=== PATIENT | female | born 1955 | race Caucasian/White ===

== ENCOUNTER 2016-09-23 10:59 | Day surgery (SDC) | payer OTHER ==
[~2016-09-23] VITALS: Ht 170.2 cm; Wt 95.3 kg
[~2016-09-23 10:59] MED LIST: ASPI-664 PO; ATOR10TA65 PO
[2016-09-23 11:34] VITALS: Ht 170.2 cm; Wt 95.3 kg
[2016-09-23 11:44] VITALS: BP 124/69; PULSE 70; RESP 15
[2016-09-23 12:20] VITALS: BP 115/72; PULSE 68; RESP 12
[2016-09-23] MEDS ORDERED: PROPOFOL 60 ML ONE (18:03)
[2016-09-23] MEDS ORDERED: LIDOCAINE 2% (SDV) 5 ML INJ ONE (18:03)
--- NOTE | 2016-09-24 07:49 | GILP ---
DATE OF PROCEDURE: 09/23/2016 PREOPERATIVE DIAGNOSES: 1. Chronic heartburn. 2. Dysphagia. POSTOPERATIVE DIAGNOSES: 1. Gastroesophageal reflux disease. 2. Gastritis with erosions. 3. Gastric mucosal biopsies were taken for Helicobacter pylori test. 4. No stricture or neoplasm was identified. PROCEDURE PERFORMED: Esophagogastroduodenoscopy and biopsy. SURGEON: Margaret Salvador MD. INDICATION FOR PROCEDURE: Ms. Josué Adair is a 61-year-old female patient who had chronic heartburn not responding to therapy. She was also complaining of dysphagia. The patient was scheduled for endoscopic examination for further evaluation. The procedure and possible complications were well explained to the patient. She understood and consented to the procedure. DESCRIPTION OF PROCEDURE: Under the influence of anesthesia the gastroscope was carefully introduced into the esophagus and under direct vision it was advanced to the stomach, into the pylorus, into the duodenal bulb and the descending duodenum. Findings esophagus, the patient had gastroesophageal reflux disease. There was no stricture or neoplasm. Stomach, she had gastritis with erosions. Gastric mucosal biopsies were taken for Helicobacter pylori test. Duodenum was normal. She tolerated the procedure very well and there was no complications from the procedure. At the end of the procedure she was awake with stable vital signs and she was discharged home in the care of her family. IMPRESSION: 1. Gastroesophageal reflux disease. 2. Gastritis with erosions. 3. Gastric mucosal biopsies were taken for Helicobacter pylori test. 4. No stricture or neoplasm was identified. PLAN: 1. Pantoprazole 40 mg p.o. q.a.m. 2. Await Helicobacter pylori test report. Dictated By: MD TAISHA Donato/silvano/cipriano /Document#: [id number] CC: Margaret Salvador MD;*[facility]*
== END 2016-09-23 12:51 | disposition home or self-care (01) ==
LOC: GIL 10:59
PROVIDERS: ATTEND Internal Medicine Gastroenterology
DX: K21.9 Gastro-esophageal reflux disease without esophagitis (principal); B96.81 Helicobacter pylori [H. pylori] as the cause of diseases classified elsewhere; J45.909 Unspecified asthma, uncomplicated; Z85.3 Personal history of malignant neoplasm of breast; K29.60 Other gastritis without bleeding
CPT/HCPCS: 43239; 87081; Z7610

== ENCOUNTER 2017-01-20 08:40 | Day surgery (SDC) | payer OTHER ==
[~2017-01-20] VITALS: Ht 170.2 cm; Wt 90.3 kg
[2017-01-20] MEDS ORDERED: BENTYL (09:20)
[2017-01-20] MEDS ORDERED: PANTOPRAZOLE (09:20)
[2017-01-20 09:22] VITALS: Ht 170.2 cm; Wt 90.3 kg
[2017-01-20 09:42] VITALS: BP 121/69; PULSE 58; RESP 20
[2017-01-20] MEDS ORDERED: LIDOCAINE 2% (SDV) 5 ML INJ ONE (09:45)
[2017-01-20] MEDS ORDERED: PROPOFOL 20 ML ONE ×3 (09:45→10:26)
--- NOTE | 2017-01-20 10:33 | OPPN ---
Date/Time of Note Date/Time of Note DATE: 01/20/17 TIME: 10:31 Operative Report Preoperative Diagnosis Abdominal pain Chronic diarrhea Postoperative Diagnosis Gastroesophageal reflux disease Gastritis with erosions Status post subtotal colectomy Internal hemorrhoids Operation/Procedure Performed Esophagogastroduodenoscopy and biopsy Flexible sigmoidoscopy and biopsy Surgeon see signature line assistant news director None Anesthesia: MAC Estimated blood loss: none Transfusion Required none Specimen Gastric mucosal biopsy Random colon biopsies Grafts/Implants none Complications none SHAMA DAILY MD Jan 20, 2017 10:33
--- NOTE | 2017-01-20 10:59 | GILP ---
DATE OF PROCEDURE: NAME OF PROCEDURES: 1. Esophagogastroduodenoscopy and biopsy. 2. Flexible sigmoidoscopy and biopsy. SURGEON: Shama Salvador MD PREOPERATIVE DIAGNOSES: 1. Abdominal pain. 2. Chronic diarrhea. POSTOPERATIVE DIAGNOSES: 1. Gastroesophageal reflux disease. 2. Gastritis with erosions. 3. Gastric mucosal biopsies were taken for H. pylori test. 4. Flexible sigmoidoscopy to anastomotic area. 5. Random biopsies were taken to rule out microscopic colitis. 6. Internal hemorrhoids. INDICATION FOR THE PROCEDURE: Ms. Josué Adair is a 61-year-old female patient who had upper a bdominal pain and lower abdominal pain, not responding to therapy. Patient also had chronic heartbu rn, not responding to therapy. She had chronic diarrhea. The patient underwent abdominal CT scan a nd she was noted to have thickening of the sigmoid colon, so the patient was scheduled for endoscopy and colonoscopy for further evaluation. The procedures and possible complications were well explained to the patient, she understood and con sented to the procedure. DESCRIPTION OF PROCEDURE: Under the influence of anesthesia, the gastroscope was carefully introduc ed into the esophagus and under direct vision it was advanced to the stomach and through the pylorus into the duodenal bulb and descending duodenum. FINDINGS: ESOPHAGUS: The patient had gastroesophageal reflux disease. STOMACH: She had gastritis with erosions. Gastric mucosal biopsies were taken for H. pylori test. DUODENUM: Normal. Flexible sigmoidoscope was carefully introduced into the rectum, and it was advanced to the anastomo tic area. FINDINGS: The patient was noted to have internal hemorrhoids. Random biopsies were taken to rule o ut microscopic colitis. She tolerated the procedures very well and there were no complication from the procedures. At the e nd of the procedures, she was awake with stable vital signs and she was discharged home to the care of her family. IMPRESSION: Please see postoperative diagnoses. PLAN: 1. Continue pantoprazole 40 mg p.o. q.a.m. 2. Bentyl 10 mg p.o. t.i.d. a.c. 3. Await histopathology reports. Small bowel series with barium for further evaluation. Dictated By: SHAMA SUMNER/HUA Conf#: [id number] DID#: [id number]
--- NOTE | 2017-01-21 10:05 | PREOPHP ---
DATE OF ADMISSION: 01/20/2017 TYPE OF CONSULTATION: Preoperative Gastroenterology Dear Dr. Dawkins, I thank you very much for this kind referral. HISTORY OF PRESENT ILLNESS: Ms. Josué Adair is a 61-year-old female patient who has been refe rred to me for further evaluation of severe abdominal pain and change in the bowel habit. The patie nt states she has got severe upper abdominal pain and pain in the lower part of the abdomen. Patien t went to the emergency room, and she had abdominal CT scan done and she was noted to have thickenin g of the christie of the distal sigmoid colon. There was no other abnormality identified. The patient is known to have had gastritis and gastroesophageal reflux disease. She is being treated for H. py vince infection with antibiotics. She gives history of gallstones, but she does not have any fever, chills, or jaundice. No right upper quadrant pain, no liver disease. Patient complains of chronic diarrhea. She is status post subtotal resection of the colon for cancer. No rectal bleeding. She has history of labile hypertension. Not a diabetic. No history of heart disease or lung problem or kidney disease. She is status post lumpectomy and radiation for the breast cancer. She also had a ppendectomy and tubal ligation. SOCIAL HISTORY: Nonsmoker, no alcohol abuse. FAMILY HISTORY: No family history of gastrointestinal tract neoplasm. ALLERGIES: SHE IS ALLERGIC TO MORPHINE. MEDICATIONS: 1. Omeprazole. 2. Antibiotic therapy for H. pylori. PHYSICAL EXAMINATION: GENERAL: She is 5 feet 7 inches tall and weighs 209 pounds. HEART: Normal heart sounds. LUNGS: Clear. ABDOMEN: Soft, nondistended. No masses, no focal tenderness. Normal bowel sounds. NEUROLOGIC: Normal exam. IMPRESSION: 1. Severe upper and lower abdominal pain, not responding to therapy with omeprazole. The patient h ad abdominal CT scan done in the emergency room, and she was noted to have thickening of the sigmoid colon, history of gallstones. 2. History of Helicobacter pylori infection gastritis for which she is being treated with antibioti cs. 3. Chronic diarrhea. 4. Status post subtotal resection of the colon for cancer. 5. Labile hypertension. 6. Status post lumpectomy and radiation for breast cancer. 7. Status post appendectomy and tubal ligation. 8. ALLERGY TO MORPHINE. PLAN: 1. Continue pantoprazole. 2. Continue antibiotic therapy for Helicobacter pylori infection. 3. Bentyl 10 mg p.o. t.i.d. 4. Upper endoscopy and colonoscopy for further evaluation. 5. Because of the obesity with a short thick neck, she needs monitored anesthesia care. The procedures and possible complications are well explained to the patient. She understands and co nsents to the procedures. I thank you once again. With warmest personal regards, Dictated By: SHAMA SUMNER/HUA Conf#: [id number] DID#: [id number]
== END 2017-01-20 13:10 | disposition home or self-care (01) ==
LOC: GIL 08:40
PROVIDERS: ATTEND Internal Medicine Gastroenterology
DX: R19.4 Change in bowel habit (principal); K21.9 Gastro-esophageal reflux disease without esophagitis; K29.60 Other gastritis without bleeding; K64.8 Other hemorrhoids; I10 Essential (primary) hypertension
CPT/HCPCS: 43239; 45331; 87081; 88305; Z7610

== ENCOUNTER 2018-05-17 07:13 | Emergency (ER) | payer OTHER ==
[~2018-05-17] VITALS: Ht 170.2 cm; Wt 99.6 kg
[~2018-05-17 07:13] MED LIST changes: -ASPI-664 PO; -ATOR10TA65 PO; +BENTYL; +PANTOPRAZOLE
[2018-05-17 07:16] VITALS: Ht 170.2 cm; Wt 99.6 kg
[2018-05-17] MEDS ORDERED: KETOROLAC 15 MG INJ IV STA (07:38)
[2018-05-17] MEDS ORDERED: SOD CHLORIDE 0.9% 500 ML IV STA (07:38)
[2018-05-17] MEDS ORDERED: ONDANSETRON 4 MG INJ IV STA (07:38)
--- NOTE | 2018-05-17 07:38 | ERD ---
ER Documentation Chief Complaint Chief Complaint feels nauseous; pressure like chest pain; dizziness HPI 62-year-old woman complaining of headache, dizziness, nausea and vomiting, hypertension beginning this morning. She has had similar episodes in the past and also states she feels anxious this morning with chest pain and palpitations. She had a few episodes of clear nonbloody nonbilious emesis and called 911 and was transported here without further complications. Her chest pain is sharp, nonexertional nonradiating. Her headache is global and diffuse and feels similar to prior episodes associated with anxiety and dizziness which she normally has when her blood pressure goes up. She states she has been using her medications as prescribed. Patient denies slurred speech, no difficulty speaking or swallowing, no weakness in her arms or legs. Patient was transported here by EMS without further complications. ROS All systems reviewed and are negative except as per history of present illness. Medications Home Meds Active Scripts Meclizine Hcl* (Antivert*) 12.5 Mg Tab, 25 MG PO Q6H PRN for DIZZINESS, #20 TAB Prov:SAIRA SEWELL MD 05/17/18 Naproxen* (Naprosyn*) 500 Mg Tablet, 500 MG PO BID PRN for PAIN AND/OR INFLAMMATION, #30 TAB Prov:SAIRA SEWELL MD 05/17/18 Reported Medications Ropinirole Hcl* (Ropinirole Hcl*) 0.5 Mg Tablet, 0.5 MG PO HS, TAB 05/17/18 Propranolol Hcl* (Propranolol Hcl*) 10 Mg Tablet, 10 MG PO BID, TAB 05/17/18 Oxybutynin Chloride* (Ditropan*) 5 Mg Tab, 5 MG PO BID, TAB 05/17/18 Buspirone Hcl* (Buspirone Hcl*) 10 Mg Tab, 10 MG PO BID, TAB 05/17/18 Amitriptyline Hcl* (Amitriptyline Hcl*) 100 Mg Tablet, 100 MG PO QHS, #30 TAB 05/17/18 Zolpidem Tartrate* (Zolpidem Tartrate*) 5 Mg Tablet, 5 MG PO QHS PRN for INSOMNIA, #30 TAB 05/17/18 Carisoprodol* (Carisoprodol*) 350 Mg Tablet, 350 MG PO DAILY PRN for MUSCLE SPASMS, TAB 05/17/18 Lorazepam* (Lorazepam*) 1 Mg Tablet, 1 MG PO BID PRN for ANXIETY, #30 TAB 05/17/18 Metoprolol Succinate* (Toprol XL*) 25 Mg Tab.sr.24h, 25 MG PO DAILY, #30 TAB 05/17/18 Cilostazol* (Cilostazol*) 50 Mg Tablet, 50 MG PO BID, TAB 05/17/18 Letrozole* (Letrozole*) 2.5 Mg Tablet, 2.5 MG PO DAILY, TAB 05/17/18 Furosemide* (Furosemide*) 40 Mg Tablet, 40 MG PO DAILY, TAB 05/17/18 Discontinued Reported Medications [Pantoprazole] No Conflict Check 01/20/17 [Bentyl] No Conflict Check 01/20/17 Allergies Allergies: Coded Allergies: epinephrine (Verified Allergy, Severe, 05/17/18) morphine (Verified Allergy, Unknown, RASH, 05/17/18) PMhx/Soc History of gastritis, chronic headaches, chronic diarrhea, resection of colon for colon carcinoma, hypertension, history of tubal ligation and appendectomy, anxiety History of Surgery: Yes (RIGHT LUMPECTOMY, TUBAL LIGATION, SUBTOTAL COLON RESECTION) Anesthesia Reaction: No Hx Neurological Disorder: No Hx Respiratory Disorders: No Hx Cardiac Disorders: Yes (HTN) Hx Psychiatric Problems: No Hx Miscellaneous Medical Probl: No Hx Alcohol Use: No Hx Substance Use: No Hx Tobacco Use: No FmHx Family History: No diabetes Physical Exam Vitals Vital Signs Date Temp Pulse Resp B/P (MAP) Pulse Ox O2 O2 Flow FiO2 Time Delivery Rate 05/17/18 60 19 139/87 99 Room Air 09:42 (104) 05/17/18 63 19 154/87 99 Room Air 08:47 (109) 05/17/18 150/96 08:20 (114) 05/17/18 97.4 69 19 189/97 99 07:16 (127) Physical Exam GENERAL: Well-developed, well-nourished, anxious, tearful, afebrile HEENT: Moist mucous membranes, pink conjunctiva, no cervical spine tenderness or step-off deformities, no goiter, no jaundice or icterus NEURO: Alert and oriented 3, cranial nerves II through XII intact bilaterally, pupils equal round reactive to light, no focal deficits or facial asymmetry, sensation intact distally Strength 5/5 in upper and lower extremities bilaterally CARDIAC: Regular rate and rhythm, no murmurs rubs or gallops LUNGS: Clear bilaterally no wheezing crackles or stridor ABDOMEN: Soft nontender, no guarding, no rigidity, no rebound, no psoas sign no obturator sign. Normoactive bowel sounds EXTREMITIES: No clubbing cyanosis or edema, calves are bilaterally symmetrical, no Homans sign, no popliteal cord sign. Distal pulses equal and bilateral PSYCH: Anxious Result Diagram: 05/17/18 0810 05/17/18 0810 Results 24 hrs Laboratory Tests Test 05/17/18 08:10 05/17/18 09:10 White Blood Count 8.3 10^3/ul Red Blood Count 4.96 10^6/ul Hemoglobin 14.1 g/dl Hematocrit 44.1 % Mean Corpuscular Volume 88.9 fl Mean Corpuscular Hemoglobin 28.4 pg Mean Corpuscular Hemoglobin Concent 32.0 g/dl Red Cell Distribution Width 13.4 % Platelet Count 219 10^3/UL Mean Platelet Volume 10.4 fl Immature Granulocytes % 0.600 % Neutrophils % 60.5 % Lymphocytes % 29.8 % Monocytes % 7.5 % Eosinophils % 1.2 % Basophils % 0.4 % Nucleated Red Blood Cells % 0.0 /100WBC Immature Granulocytes # 0.050 10^3/ul Neutrophils # 5.0 10^3/ul Lymphocytes # 2.5 10^3/ul Monocytes # 0.6 10^3/ul Eosinophils # 0.1 10^3/ul Basophils # 0.0 10^3/ul Nucleated Red Blood Cells # 0.0 10^3/ul Sodium Level 143 mmol/L Potassium Level 4.1 mmol/L Chloride Level 108 mmol/L Carbon Dioxide Level 21 mmol/L Anion Gap 14 Blood Urea Nitrogen 14 mg/dl Creatinine 0.60 mg/dl Est Glomerular Filtrat Rate mL/min > 60 mL/min Glucose Level 128 mg/dl Calcium Level 10.0 mg/dl Total Bilirubin 0.4 mg/dl Direct Bilirubin 0.00 mg/dl Indirect Bilirubin 0.4 mg/dl Aspartate Amino Transf (AST/SGOT) 22 IU/L Alanine Aminotransferase (ALT/SGPT) 20 IU/L Alkaline Phosphatase 63 IU/L Troponin I < 0.012 ng/ml Total Protein 7.4 g/dl Albumin 4.3 g/dl Globulin 3.10 g/dl Albumin/Globulin Ratio 1.38 Lipase 165 U/L Urine Color STRAW Urine Clarity CLEAR Urine pH 6.0 Urine Specific Stopover 1.012 Urine Ketones NEGATIVE mg/dL Urine Nitrite NEGATIVE mg/dL Urine Bilirubin NEGATIVE mg/dL Urine Urobilinogen NEGATIVE mg/dL Urine Leukocyte Esterase TRACE Audie/ul Urine Microscopic RBC 1 /HPF Urine Microscopic WBC 5 /HPF Urine Hemoglobin NEGATIVE mg/dL Urine Glucose NEGATIVE mg/dL Urine Total Protein NEGATIVE mg/dl Current Medications Medications Dose Sig/Liza Start Time Status Last (Trade) Ordered Route PRN Stop Time Admin Dose Reason Admin Sodium 500 ml @ Q1H STAT 05/17/18 DC 05/17/18 Chloride 500 mls/hr IV 07:38 08:19 05/17/18 08:37 Ondansetron 4 mg ONCE STAT 05/17/18 DC 05/17/18 HCl (Zofran IV 07:38 08:20 Inj) 05/17/18 07:56 Ketorolac 15 mg ONCE STAT 05/17/18 DC 05/17/18 Tromethamine IV 07:38 08:20 (Toradol) 05/17/18 07:56 Enalaprilat 1.25 mg ONCE ONCE 05/17/18 DC 05/17/18 (Vasotec Iv) IV 08:00 08:20 05/17/18 08:01 Procedures/MDM IV line was established patient was placed on cardiac nurse specialist rhythm strip r evealed a sinus rhythm at about 60 bpm with upright P and T waves. Patient was afebrile EKG performed, read by me revealed a normal sinus rhythm at 63 bpm, normal axis, narrow QRS complex, no concerning ST elevations or depressions noted I administered 500 cc normal saline IV, Toradol 15 mg IV, Zofran 4 mg IV, IV x1 for hypertension. CT scan of the brain was negative for acute bleed mass or shift. CBC and electrolytes are normal, liver function tests normal, troponin was negative, urine analysis was negative for infection. Patient's workup was unremarkable and her dizziness and vomiting resolved completely and headache improved. Vital signs are normal and hypertension resolved, she will be discharged to follow-up with PMD for continued outpatient management. Differential diagnoses considered, included but not limited to acute coronary syndrome, pulmonary embolism, aortic dissection, abdominal aortic aneurysm, sepsis, stroke, meningitis, encephalitis, pneumonia, appendicitis, ch olecystitis, bowel obstruction, pyelonephritis, nephrolithiasis, cystitis, as well as metabolic, hematologic, and electrolyte abnormalities. As well as abscess, cellulitis, fractures, and dislocations. Patient feels much better at this time, and vital signs are normal, symptoms have improved. I did give strict instructions to return to the ED if symptoms continue or worsen, patient will otherwise follow-up with primary care physician. Patient understood instructions and agreed to plan. Disclaimer: Inadvertent spelling and grammatical errors are likely due to EHR/dictation software use and do not reflect on the overall quality of patient care. Also, please note that the electronic time recorded on this note does not necessarily reflect the actual time of the patient encounter. Departure Diagnosis: Primary Impression: Hypertension Hypertension type: essential hypertension Qualified Codes: I10 - Essential (primary) hypertension Additional Impressions: Anxiety Vertigo Chest pain Chest pain type: unspecified Qualified Codes: R07.9 - Chest pain, unspecified Vomiting Vomiting type: unspecified Vomiting Intractability: non-intractable Nausea presence: with nausea Qualified Codes: R11.2 - Nausea with vomiting, unspecified Headache Headache type: tension-type Headache chronicity pattern: acute headache Intractability: not intractable Qualified Codes: G44.209 - Tension-type headache, unspecified, not intractable Condition: SAIRA García MD May 17, 2018 07:38
[2018-05-17] MEDS ORDERED: ENALAPRILAT 1.25 MG INJ IV ONE (08:00)
[2018-05-17] MEDS ORDERED: FURO40TA4 PO (08:00)
[2018-05-17] MEDS ORDERED: CILO50TA PO (08:01)
[2018-05-17] MEDS ORDERED: LETR2.5T PO (08:01)
[2018-05-17] MEDS ORDERED: METO-335 PO (08:02)
[2018-05-17] MEDS ORDERED: LORA1TAB PO (08:02)
[2018-05-17] MEDS ORDERED: CARI350T29 PO (08:03)
[2018-05-17] MEDS ORDERED: AMIT100T2 PO (08:03)
[2018-05-17] MEDS ORDERED: ZOLP5TAB7 PO (08:03)
[2018-05-17] MEDS ORDERED: BUSP10TA2 PO (08:04)
[2018-05-17] MEDS ORDERED: PROP10TA6 PO (08:04)
[2018-05-17] MEDS ORDERED: OXYB5TAB7 PO (08:04)
[2018-05-17] MEDS ORDERED: ROPI0.5T2 PO (08:05)
[2018-05-17 09:42] VITALS: BP 139/87; PULSE 60; RESP 19
[2018-05-17] MEDS ORDERED: MECL12.574 PO (09:46)
[2018-05-17] MEDS ORDERED: NAPR-985 PO (09:46)
== END 2018-05-17 10:01 | disposition home or self-care (01) ==
LOC: E/R 07:13
DX: I10 Essential (primary) hypertension (principal); F41.9 Anxiety disorder, unspecified; R42 Dizziness and giddiness; G44.209 Tension-type headache, unspecified, not intractable; R40.2142 Coma scale, eyes open, spontaneous, at arrival to emergency department; R40.2252 Coma scale, best verbal response, oriented, at arrival to emergency department; R40.2362 Coma scale, best motor response, obeys commands, at arrival to emergency department; Z85.038 Personal history of other malignant neoplasm of large intestine
CPT/HCPCS: 36415; 70450; 80053; 81001; 83690; 84484; 85025; 93005; 96374; 96375; J1885; J2405; J7040; Z7502; Z7610